=== PATIENT | female | born 1940 | race Caucasian/White ===

== ENCOUNTER → 2016-08-10 | Outpatient (CLI) | payer OTHER ==
--- NOTE | 2016-08-10 14:56 | MA ---
Screening Digital Mammogram With Tomosynthesis Clinical Indications: Routine screening. Technique: Standard digital cephalocaudal and tomosynthesis mediolateral oblique projections are obt ained. The digital images were processed by the [employer] computer aided detection system. Comparison: July 2015 and 2014, June 2013 and May 2012 Breast density: B; There are scattered fibroglandular densities. Findings: CAD was reviewed. No suspicious findings are identified. Impression: Negative mammogram. BI-RADS 1. Recommendation: Routine screening is recommended in one year. [facility] will send a result letter to the patient. Negative mammography should not preclude additional workup of a clinically suspicious finding. The patient's information is entered into a reminder system with a target due date for her next mammo gram.
== END ==
LOC: FIMAGING 11:12
DX: Z12.31 Encounter for screening mammogram for malignant neoplasm of breast (principal)
CPT/HCPCS: G0202

== ENCOUNTER → 2016-12-30 | Outpatient (CLI) | payer OTHER | LOC: BHCLAF 11:30 | PROVIDERS: ATTEND Internal Medicine | DX: I71.9 Aortic aneurysm of unspecified site, without rupture (principal); I10 Essential (primary) hypertension | CPT/HCPCS: 93306-PO ==

== ENCOUNTER → 2017-01-02 | Outpatient (CLI) | payer OTHER | LOC: BHFA 14:00 | PROVIDERS: ATTEND Internal Medicine Cardiovascular Disease | DX: I38 Endocarditis, valve unspecified (principal); I10 Essential (primary) hypertension ==

== ENCOUNTER 2017-03-05 20:59 | Emergency (ER) | payer OTHER ==
--- NOTE | 2017-03-05 22:19 | EDPHY ---
H & P Smoking Status: Never smoked Time Seen by Provider: 03/05/17 21:29 HPI/ROS: CHIEF COMPLAINT: Fall, hit head HISTORY OF PRESENT ILLNESS: 77-year-old female presents to the emergency department after she sustained a mechanical fall and hit her head. The patient was walking outside of her home and tripped over the lip of the sidewalk and fell and hit the left side of her head. She did not lose consciousness. She had some neighbors walk back to her home. The incident happened at 2:30 a.m. this afternoon. She has a headache. She has chronic neck pain and does not feel that anything was new associated with this. No back pain. No chest pain or difficulty breathing. No syncopal symptoms prior to her fall. REVIEW OF SYSTEMS: Constitutional: No fever, no chills. Eyes: No double or blurry vision. ENT: No sore throat. Respiratory: No cough, no shortness of breath. Cardiac: No chest pain. Gastrointestinal: No abdominal pain, vomiting or diarrhea. Genitourinary: No dysuria. Musculoskeletal: No neck pain as above. No back pain. Skin: No rashes. Neurological: Headache. ([facility]) Past Medical/Surgical History: Hypertension, depression, anxiety, high cholesterol, arthritis, thoracic aneurysm ([facility]) Social History: ([facility]) Physical Exam: General Appearance: Alert, no distress. Mentating normally and answering questions appropriately. Large left frontal ecchymotic hematoma that is tender to palpate. No abrasion or laceration noted. No suturable lacerations noted. Eyes: Pupils equal and round. Extraocular motions are all intact. ENT: Mouth: Mucous membranes moist. Respiratory: No wheezing, rhonchi, or rales, lungs are clear to auscultation. Cardiovascular: Regular rate and rhythm. Gastrointestinal: Abdomen is soft and nontender, no masses, no rebound or guarding, bowel sounds normal. Neurological: Alert and oriented x 3, cranial nerves II through XII grossly intact Skin: Warm and dry, no rashes. Musculoskeletal: Nontender to palpate along the cervical, thoracic or lumbar spine. Neck is supple although somewhat limited rotating left and right which the patient states is chronic for her. Extremities: Full range of motion and no peripheral edema. Abrasions and some ecchymosis noted to the anterior aspect of both knees. Full range of motion of her upper lower extremities. Superficial abrasions to the palms of both hands. Psychiatric: Patient is oriented X 3, there is no agitation. ([facility]) Constitutional: Initial Vital Signs Temperature (C) 36.6 C 03/05/17 21:03 Heart Rate 65 03/05/17 21:03 Respiratory Rate 14 03/05/17 21:03 Blood Pressure 155/81 H 03/05/17 21:03 O2 Sat (%) 96 03/05/17 21:03 O2 Delivery Mode Room Air Allergies/Adverse Reactions: iodine [Iodine] Allergy (Unknown, Verified 11/25/11 16:21) Penicillins Allergy (Unknown, Verified 11/25/11 16:21) Home Medications: Medication Instructions Recorded Citalopram [CeleXA 20 MG] mg PO 11/25/11 Aleve 03/05/17 Aspirin 81mg (*) 03/05/17 Calcium Citrate - Vit D3 Tab 03/05/17 Crestor 03/05/17 FISH OIL/OMEGA-3/ASCORBIC ACID 03/05/17 Miralax 17 gm (*) 03/05/17 Multivitamin 03/05/17 Quinapril HCl 03/05/17 Tylenol 03/05/17 Vitamin D3 03/05/17 Zantac 03/05/17 buPROPion 03/05/17 Medical Decision Making - Diagnostics Imaging: Discussed imaging studies w/ call center assistant Radiologist - Diagnostics Imaging Results: Imaging Impressions Head CT 03/05/17 21:52 Impression: 1. Left frontal scalp hematoma. 2. No skull fracture. 3. No intracranial hemorrhage or epidural/subdural hematoma. Findings and recommendations discussed with Emergency Department physician, [facility] at 2240 hour, 03/05/2017. Final report concurs with initial preliminary interpretation. CT imaging of the brain reveals no intracranial bleeding or skull fracture. This is reported by the radiologist. ([facility]) ED Course/Re-evaluation: 77-year-old female presents to the emergency department after she fell and hit her head. She did not lose consciousness. I discussed the pros and cons of CT imaging of her brain including radiation exposure the patient agrees with CT scan of her brain. Patient has a history of chronic neck pain. I did offer CT imaging of her neck and the patient declined this. She does not feel that it is any worse than her normal chronic neck pain. CT imaging of the brain reveals no intracranial bleeding or skull fracture. The patient was given closed-head injury precautions. She was specifically advised to avoid any activity that might put her at risk for another head injury for at least 1 week. She was also advised to return if she developed worsening headache, vomiting, altered mental status, or any other concerns. ( [place]) I did not see this patient while she was in the emergency department. However her care was discussed with the PA while the patient was in the department. I agree with treatment plan and management ([place]) Differential Diagnosis: Head injury including but not limited to concussion, skull fracture, intraparenchymal contusion, subarachnoid, subdural and epidural hematoma. ([facility]) Departure - Departure Disposition: Home, Routine, Self-Care Clinical Impression: Head injury due to trauma Qualifiers: Encounter type: initial encounter Qualified Code(s): S09.90XA - Unspecified injury of head, initial encounter Traumatic hematoma of forehead Qualifiers: Encounter type: initial encounter Qualified Code(s): S00.83XA - Contusion of other part of head, initial encounter Condition: Good Instructions: Concussion (ED), Head Injury (ED) Additional Instructions: Avoid any activity that might put you at risk for another head injury for at least 1 week. Return to the emergency department if you develop worsening headache, vomiting, altered mental status, or if you feel worse in any way. Referrals: Paula Dyer MD [Primary Care Provider] - As per Instructions
[2017-03-05 23:05] VITALS: BP 139/71; PULSE 55; RESP 20; TEMP 98.1; O2SAT 94
== END 2017-03-05 23:06 | disposition home or self-care (01) ==
DX: S00.83XA Contusion of other part of head, initial encounter (principal); I10 Essential (primary) hypertension; Z79.82 Long term (current) use of aspirin; W01.198A Fall on same level from slipping, tripping and stumbling with subsequent striking against other object, initial encounter; Y92.009 Unspecified place in unspecified non-institutional (private) residence as the place of occurrence of the external cause; Y99.8 Other external cause status; Y93.01 Activity, walking, marching and hiking

== ENCOUNTER → 2017-04-12 | Outpatient (CLI) | payer OTHER | LOC: FIMAGING 14:34 | PROVIDERS: ATTEND Family Medicine | DX: S06.0X9A Concussion with loss of consciousness of unspecified duration, initial encounter (principal); T14.8 Other injury of unspecified body region ==

== ENCOUNTER → 2017-08-16 | Outpatient (CLI) | payer OTHER | LOC: FIMAGING 12:07 | PROVIDERS: ATTEND Family Medicine | DX: Z12.31 Encounter for screening mammogram for malignant neoplasm of breast (principal) ==

== ENCOUNTER → 2017-09-09 | Outpatient (CLI) | payer OTHER | LOC: FIMAGING 12:22 | PROVIDERS: ATTEND Family Medicine | DX: Z13.820 Encounter for screening for osteoporosis (principal); M85.89 Other specified disorders of bone density and structure, multiple sites ==

== ENCOUNTER → 2018-01-05 | Outpatient (CLI) | payer OTHER | LOC: BHCLAF 10:45 | PROVIDERS: ATTEND Internal Medicine Interventional Cardiology | DX: R01.1 Cardiac murmur, unspecified (principal); I10 Essential (primary) hypertension | CPT/HCPCS: 93306-PO ==

== ENCOUNTER → 2018-01-15 | Outpatient (CLI) | payer OTHER | DX: I38 Endocarditis, valve unspecified (principal); I71.2 Thoracic aortic aneurysm, without rupture; I10 Essential (primary) hypertension ==

== ENCOUNTER → 2018-09-21 | Outpatient (CLI) | payer OTHER | LOC: FIMAGING 11:11 | PROVIDERS: ATTEND Family Medicine | DX: Z12.31 Encounter for screening mammogram for malignant neoplasm of breast (principal) ==